=== PATIENT | female | born 1965 | race Caucasian/White ===

== ENCOUNTER 2024-06-06 23:39 | Emergency (ER) | payer MEDICAID ==
[~2024-06-06] VITALS: Ht 162.6 cm; Wt 88.2 kg
[2024-06-07 00:01] VITALS: O2SAT 98
[2024-06-07 02:09] VITALS: BP 119/74; PULSE 60; RESP 16; TEMP 98.2; O2SAT 99
[2024-06-07] MEDS ORDERED: NAPR-681 PO (03:35)
== END 2024-06-07 05:16 | disposition home or self-care (01) ==
LOC: ER 06-07 00:02
DX: S92.422A Displaced fracture of distal phalanx of left great toe, initial encounter for closed fracture (principal); Z98.890 Other specified postprocedural states; W01.0XXA Fall on same level from slipping, tripping and stumbling without subsequent striking against object, initial encounter; Y93.89 Activity, other specified; Y92.89 Other specified places as the place of occurrence of the external cause; Y99.8 Other external cause status
CPT/HCPCS: 73630; 99283; Z7610 ×2